=== PATIENT | male | born 1975 | race Caucasian/White ===

== ENCOUNTER 2017-12-12 17:12 | Emergency (ER) | payer MEDICAID ==
--- NOTE | 2017-12-12 18:33 | ED ---
Hypertension - HPI Summary HPI Summary: Patient states he recently moved from [place], and cannot refill prescriptions written by [place] primary care. States [place] Medicaid will not pay for medications unless prescriptions are written by [place] provider. Patient states he needs Doxazosyn 4 mg, valsartan, carvedilol, mycophenalate for kidney transplant, amlodipine. Denies any pain or symptoms. - History of Current Complaint Chief Complaint: EDPrescriptionNeeded Stated Complaint: KIDNEY ISSUE/NEED PRESCRIPTIONS Time Seen by Provider: 12/12/17 18:07 Hx Obtained From: Patient Onset/Duration: Started Hours Ago Aggravating Factor(s): Nothing Alleviating Factor(s): Nothing Associated Signs & Symptoms: Negative - Allergies/Home Medications Allergies/Adverse Reactions: Allergies Allergy/AdvReac Type Severity Reaction Status Date / Time lisinopril Allergy Anaphylatic Verified 12/12/17 18:11 Shock losartan [From Cozaar] Allergy Hives Verified 12/12/17 18:11 Home Medications: Home Medications Aspirin 81 mg CHEW TAB* 81 mg PO DAILY 12/12/17 [History Confirmed 12/12/17] Carvedilol TAB* [Coreg TAB*] 25 mg PO BID 12/12/17 [History Confirmed 12/12/17] Doxazosin TAB* [Cardura TAB*] 4 mg PO BID 12/12/17 [History Confirmed 12/12/17] Loratadine 10 mg PO DAILY 12/12/17 [History Confirmed 12/12/17] Lovastatin [Altoprev] 40 mg PO DAILY 12/12/17 [History Confirmed 12/12/17] Mycophenolate (NF) [Myfortic (NF)] 250 mg PO BID 12/12/17 [History Confirmed ] Tacrolimus [Prograf 1 MG-] 1 mg PO BID 12/12/17 [History Confirmed 12/12/17] Valsartan 320 MG 320 mg PO DAILY 12/12/17 [History Confirmed 12/12/17] amLODIPine TAB* [Norvasc 5 mg TAB*] 10 mg PO DAILY 12/12/17 [History Confirmed 12/12/17] traZODone TAB* [Desyrel TAB*] 100 mg PO BEDTIME 12/12/17 [History Confirmed ] PMH/Surg Hx/FS Hx/Imm Hx Cardiovascular History: Denies: Hx Cardiac Arrest History: Denies: Hx Dialysis Neurological History: Denies: Hx CVA - Immunization History Immunizations Up to Date: Yes Infectious Disease History: No Infectious Disease History: Denies: Traveled Outside the [place] in Last 30 Days - Social History Alcohol Use: Rare Substance Use Type: Reports: None Smoking Status (MU): Never Smoked Tobacco Review of Systems Constitutional: Negative Eyes: Negative ENT: Negative Cardiovascular: Negative Respiratory: Negative Gastrointestinal: Negative Genitourinary: Negative Musculoskeletal: Negative Skin: Negative Neurological: Negative Psychological: Normal All Other Systems Reviewed And Are Negative: Yes Physical Exam Triage Information Reviewed: Yes Vital Signs On Initial Exam: Initial Vitals Temp Pulse Resp BP Pulse Ox 98.7 F 82 16 115/84 97 12/12/17 17:31 12/12/17 17:31 12/12/17 17:31 12/12/17 17:31 12/12/17 17:31 Vital Signs Reviewed: Yes Appearance: Positive: Well-Appearing Skin: Positive: Warm Head/Face: Positive: Normal Head/Face Inspection Eyes: Positive: Normal Neck: Positive: Supple Respiratory/Lung Sounds: Positive: Clear to Auscultation Cardiovascular: Positive: Normal Abdomen Description: Positive: Nontender Musculoskeletal: Positive: Normal Neurological: Positive: Normal Psychiatric: Positive: Normal AVPU Assessment: Alert - Eliseo Coma Scale Best Eye Response: 4 - Spontaneous Best Motor Response: 6 - Obeys Commands Best Verbal Response: 5 - Oriented Coma Scale Total: 15 Diagnostics - Vital Signs Vital Signs Temp Pulse Resp BP Pulse Ox 12/12/17 17:31 98.7 F 82 16 115/84 97 - Laboratory Lab Statement: Any lab studies that have been ordered have been reviewed, and results considered in the medical decision making process. Hypertension Course/Dx - Course Course Of Treatment: Patient states he recently moved from [place], and cannot refill prescriptions written by [place] primary care. States [place] Medicaid will not pay for medications unless prescriptions are written by [place] provider. Patient states he needs Doxazosyn 4 mg, valsartan, carvedilol, mycophenalate for kidney transplant, amlodipine. Denies any pain or symptoms. Prescriptions placed on month. Patient has appointment to set up primary care December - Diagnoses Provider Diagnoses: Medication refill Discharge - Sign-Out/Discharge Documenting (check all that apply): Patient Departure - Discharge Plan Condition: Stable Disposition: HOME Prescriptions: Amlodipine Besylate [Norvasc] 10 mg PO DAILY 30 Days #30 tablet Carvedilol TAB* [Coreg TAB*] 25 mg PO BID 30 Days #60 tab Doxazosin Mesylate 4 mg PO BID 30 Days #60 tablet Mycophenolate Mofetil CAP(*) [Cellcept CAP(*)] 250 mg PO BID 30 Days #60 cap Valsartan [Valsartan 320 MG] 320 mg PO DAILY #30 tab Patient Education Materials: Medicine Refill (ED) Referrals: No Primary Care Phys,NOPCP [Primary Care Provider] - Additional Instructions: Follow-up with your appointment for new primary care on December 27. Return to the ED for any new or worsening symptoms - Billing Disposition and Condition Condition: STABLE Disposition: Home
[2017-12-12 18:38] VITALS: BP 120/74
== END 2017-12-12 18:37 | disposition home or self-care (01) ==
LOC: ED 17:12
DX: Z76.0 Encounter for issue of repeat prescription (principal); Z79.82 Long term (current) use of aspirin; Z94.0 Kidney transplant status
CPT/HCPCS: 99282